=== PATIENT | male | born 1975 | race Caucasian/White ===

== ENCOUNTER 2020-02-12 01:30 | Emergency (ER) | payer BC ==
--- NOTE | 2020-02-12 02:08 | CT ---
INDICATION: Fall. Head injury TECHNIQUE: CT head without contrast. COMPARISON: 01/11/2013 FINDINGS: There is mild cortical atrophy for age. The ventricles are within normal limits. There is no mass effect or midline shift. There is no loss of fleming-white differentiation. There is no evidence of a gross acute intracranial hemorrhage. No acute calvarial fracture is seen. There is a posterior scalp hematoma. There is a small mucosal retention cyst or polyp in the posterior right ethmoid sinus. The mastoid air cells are clear. The visualized orbits are within normal limits. IMPRESSION: No evidence of gross acute intracranial hemorrhage, mass effect or loss of fleming-white differentiation. Mild atrophy for age. A posterior scalp hematoma. Dictated by Fred Goodson MD @ 02/12/2020 2:06:15 AM Please note that all CT scans at this facility use dose modulation, iterative reconstruction, and/or weight-based dosing when appropriate to reduce radiation dose to as low as reasonably achievable. Dictated by: Fred Goodson MD @ 02/12/2020 02:06:21 (Electronically Signed)
[2020-02-12] MEDS ORDERED: Lidocaine 1% with EPINEPHrine 1:100,000 10 ML MDV INJECT ONE (02:16)
[2020-02-12] MEDS ORDERED: Lidocaine 1% with EPINEPHrine 1:100,000 20 ML MDV ONE (02:20)
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
[2020-02-12 03:05] VITALS: BP 105/73; PULSE 104
== END 2020-02-12 03:00 | disposition home or self-care (01) ==
LOC: MW.ED 01:30
DX: S01.01XA Laceration without foreign body of scalp, initial encounter (principal); Y04.0XXA Assault by unarmed brawl or fight, initial encounter
CPT/HCPCS: 12004; 70450; 70450-26; 99283-25

== ENCOUNTER 2020-03-16 13:37 | Emergency (ER) | payer BC ==
[2020-03-16] MEDS ORDERED: Sodium Chloride 0.9% 1,000 ML IV ONE (13:40)
[2020-03-16] MEDS ORDERED: Sodium Chloride 0.9% 10 ML Syringe FLUSH PRN (13:40)
[2020-03-16] MEDS ORDERED: Sodium Chloride 0.9% 2.5 ML Syringe FLUSH PRN (13:40)
--- NOTE | 2020-03-16 13:42 | EDM.PDOC ---
ED HPI GENERAL MEDICAL PROBLEM - General Stated Complaint: DIZZY Time Seen by Provider: 03/16/20 13:39 Source of Information: Reports: Patient History Limitations: Reports: No Limitations - History of Present Illness INITIAL COMMENTS - FREE TEXT/NARRATIVE: 44-year-old male with h/o ETOH withdrawal presents feeling jittery, dizzy and weak today. He claims he feels dehydrated. He drank 4 glasses of wine yesterday but he normally drinks about 12 glasses per day. He has had a history of withdrawal seizures before. He denies fever, chills, nausea, vomiting , diarrhea, chest pain, shortness of breath, abdominal pain, headache. ROS: A 10-point review of systems, other than pertinent positives and negatives as stated per HPI, is otherwise negative PHYSICAL EXAM General: AOx4, GCS = 15, No distress HEENT: dry mucous membrane Neck: supple, no meningismus, no Kernig or Brudzinski Cardiac: S1S2 RRR Respiratory: CTAB, no crackles or rales, no wheezing Abdomen: Soft, nontender, no rebound or guarding, nondistended, no pulsatile mass. Back: nontender Musculoskeletal: NVI distally, no deformity Skin: clammy. Neuro: No focal deficits, CN 2 - 12 WNL. CiWAR score = 6 MEDICAL DECISION MAKING: I reviewed the patients past medical records, lab and radiographic findings. I discussed the case with family members. My differential diagnosis included: Dehydration, electrolyte abnormality, ETOH withdrawal. He was symptomatically improved after 1 mg IV Ativan, thiamine and folic acid, 1 L IV fluids, stable for discharge. Patient's CIWA score <8, does not require additional medication for withdrawal at this time. - Related Data Allergies Allergy/AdvReac Type Severity Reaction Status Date / Time No Known Allergies Allergy Verified 03/16/20 13:42 Home Meds: Home Meds . [No Known Home Meds] 02/15/16 [History] Past Medical History - Past Health History Medical/Surgical History: Denies Medical/Surgical History - Infectious Disease History Infectious Disease History: Reports: None Social & Family History - Family History Family Medical History: Noncontributory - Caffeine Use Caffeine Use: Reports: None ED ROS GENERAL - Review of Systems Review Of Systems: Comprehensive ROS is negative, except as noted in HPI. (see dictation) Neurological: Reports: Dizziness Psychiatric: Reports: Agitation, Anxiety ED EXAM, DIZZINESS - Physical Exam Exam: See Below (See dictation) EKG INTERPRETATION Rhythm: NSR EKG Interpretation Comments: 72 Bpm, NSR, normal QRS interval, no STEMI. EKG and rhythm strip interpreted by me at 1341 Course - Vital Signs Last Recorded V/S: Last Vital Signs Temp 97.4 F 03/16/20 13:43 Pulse 68 03/16/20 14:42 Resp 18 03/16/20 14:42 BP 148/82 H 03/16/20 14:42 Pulse Ox 97 03/16/20 14:42 - Orders/Labs/Meds Orders: Active Orders 24 hr Category Date Time Status Cardiac Monitoring [RC] . DIRECTED Care 03/16/20 13:40 Active EKG Documentation Completion [RC] STAT Care 03/16/20 13:40 Active Pulse Oximetry [RC] ASDIRECTED Care 03/16/20 13:40 Active Sodium Chloride 0.9% [Saline Flush] Med 03/16/20 13:40 Active 10 ml FLUSH ASDIRECTED PRN Sodium Chloride 0.9% [Saline Flush] Med 03/16/20 13:40 Active 2.5 ml FLUSH ASDIRECTED PRN Saline Lock Insert [OM.PC] Stat Oth 03/16/20 13:40 Ordered Medication Orders Sodium Chloride (Saline Flush) 10 ml FLUSH ASDIRECTED PRN PRN Reason: Keep Vein Open Last Admin: 03/16/20 13:53 Dose: 10 ml Sodium Chloride (Saline Flush) 2.5 ml FLUSH ASDIRECTED PRN PRN Reason: Keep Vein Open Last Admin: 03/16/20 13:53 Dose: 2.5 ml Labs: Laboratory Tests 03/16/20 03/16/20 03/16/20 Range/Units 13:49 13:49 14:23 WBC 4.38 (4.0-11.0) K/uL RBC 4.39 L (4.50-5.90) M/uL Hgb 12.5 L (13.0-17.0) g/dL Hct 39.4 (38.0-50.0) % MCV 89.7 (80.0-98.0) fL MCH 28.5 (27.0-32.0) pg MCHC 31.7 (31.0-37.0) g/dL RDW Std Deviation 56.7 (28.0-62.0) fl RDW Coeff of Liana 17 H (11.0-15.0) % Plt Count 175 (150-400) K/uL MPV 9.70 (7.40-12.00) fL Neut % (Auto) 68.3 (48.0-80.0) % Lymph % (Auto) 20.3 (16.0-40.0) % [place] % (Auto) 10.7 (0.0-15.0) % Eos % (Auto) 0.2 (0.0-7.0) % Baso % (Auto) 0.5 (0.0-1.5) % Neut # (Auto) 3.0 (1.4-5.7) K/uL Lymph # (Auto) 0.9 (0.6-2.4) K/uL [place] # (Auto) 0.5 (0.0-0.8) K/uL Eos # (Auto) 0.0 (0.0-0.7) K/uL Baso # (Auto) 0.0 (0.0-0.1) K/uL Nucleated RBC % 0.0 /100WBC Nucleated RBCs # 0 K/uL Sodium 135 L (136-148) mmol/L Potassium 3.7 (3.5-5.1) mmol/L Chloride 97 L (98-107) mmol/L Carbon Dioxide 24.0 (21.0-32.0) mmol/L BUN 8 (7.0-18.0) mg/dL Creatinine 0.9 (0.8-1.3) mg/dL Est Cr Clr Drug Dosing 116.16 mL/min Estimated GFR (MDRD) > 60.0 ml/min Glucose 111 H (74-106) mg/dL Calcium 8.8 (8.5-10.1) mg/dL Total Bilirubin 0.5 (0.2-1.0) mg/dL AST 105 H (15-37) IU/L ALT 94 H (14-63) IU/L Alkaline Phosphatase 57 (46-116) U/L Troponin I < 0.050 (0.000-0.056) ng/mL Total Protein 7.7 (6.4-8.2) g/dL Albumin 4.4 (3.4-5.0) g/dL Globulin 3.3 (2.6-4.0) g/dL Albumin/Globulin Ratio 1.3 (0.9-1.6) Urine Color Urine Appearance Urine pH (5.0-8.0) Ur Specific Donaldson (1.001-1.035) Urine Protein (NEGATIVE) mg/dL Urine Glucose (UA) (NEGATIVE) mg/dL Urine Ketones (NEGATIVE) mg/dL Urine Occult Blood (NEGATIVE) Urine Nitrite (NEGATIVE) Urine Bilirubin (NEGATIVE) Urine Urobilinogen (<2.0) EU/dL Ur Leukocyte Esterase (NEGATIVE) Urine Opiates Screen NEGATIVE (NEGATIVE) Ur Oxycodone Screen NEGATIVE (NEGATIVE) Urine Methadone Screen NEGATIVE (NEGATIVE) Ur Barbiturates Screen NEGATIVE (NEGATIVE) Ur Phencyclidine Scrn NEGATIVE (NEGATIVE) Ur Amphetamine Screen NEGATIVE (NEGATIVE) U Methamphetamines Scrn NEGATIVE (NEGATIVE) U Benzodiazepines Scrn NEGATIVE (NEGATIVE) U Cocaine Metab Screen NEGATIVE (NEGATIVE) U Marijuana (THC) Screen NEGATIVE (NEGATIVE) Ethyl Alcohol 32 mg/dL 03/16/20 Range/Units 14:23 WBC (4.0-11.0) K/uL RBC (4.50-5.90) M/uL Hgb (13.0-17.0) g/dL Hct (38.0-50.0) % MCV (80.0-98.0) fL MCH (27.0-32.0) pg MCHC (31.0-37.0) g/dL RDW Std Deviation (28.0-62.0) fl RDW Coeff of Liana (11.0-15.0) % Plt Count (150-400) K/uL MPV (7.40-12.00) fL Neut % (Auto) (48.0-80.0) % Lymph % (Auto) (16.0-40.0) % [place] % (Auto) (0.0-15.0) % Eos % (Auto) (0.0-7.0) % Baso % (Auto) (0.0-1.5) % Neut # (Auto) (1.4-5.7) K/uL Lymph # (Auto) (0.6-2.4) K/uL [place] # (Auto) (0.0-0.8) K/uL Eos # (Auto) (0.0-0.7) K/uL Baso # (Auto) (0.0-0.1) K/uL Nucleated RBC % /100WBC Nucleated RBCs # K/uL Sodium (136-148) mmol/L Potassium (3.5-5.1) mmol/L Chloride (98-107) mmol/L Carbon Dioxide (21.0-32.0) mmol/L BUN (7.0-18.0) mg/dL Creatinine (0.8-1.3) mg/dL Est Cr Clr Drug Dosing mL/min Estimated GFR (MDRD) ml/min Glucose (74-106) mg/dL Calcium (8.5-10.1) mg/dL Total Bilirubin (0.2-1.0) mg/dL AST (15-37) IU/L ALT (14-63) IU/L Alkaline Phosphatase (46-116) U/L Troponin I (0.000-0.056) ng/mL Total Protein (6.4-8.2) g/dL Albumin (3.4-5.0) g/dL Globulin (2.6-4.0) g/dL Albumin/Globulin Ratio (0.9-1.6) Urine Color YELLOW Urine Appearance CLEAR Urine pH 6.0 (5.0-8.0) Ur Specific Donaldson <= 1.005 (1.001-1.035) Urine Protein NEGATIVE (NEGATIVE) mg/dL Urine Glucose (UA) NEGATIVE (NEGATIVE) mg/dL Urine Ketones NEGATIVE (NEGATIVE) mg/dL Urine Occult Blood NEGATIVE (NEGATIVE) Urine Nitrite NEGATIVE (NEGATIVE) Urine Bilirubin NEGATIVE (NEGATIVE) Urine Urobilinogen 0.2 (<2.0) EU/dL Ur Leukocyte Esterase NEGATIVE (NEGATIVE) Urine Opiates Screen (NEGATIVE) Ur Oxycodone Screen (NEGATIVE) Urine Methadone Screen (NEGATIVE) Ur Barbiturates Screen (NEGATIVE) Ur Phencyclidine Scrn (NEGATIVE) Ur Amphetamine Screen (NEGATIVE) U Methamphetamines Scrn (NEGATIVE) U Benzodiazepines Scrn (NEGATIVE) U Cocaine Metab Screen (NEGATIVE) U Marijuana (THC) Screen (NEGATIVE) Ethyl Alcohol mg/dL Meds: Medications Generic Name Dose Route Start Last Admin Trade Name Freq PRN Reason Stop Dose Admin Sodium Chloride 10 ml 03/16/20 13:40 03/16/20 13:53 Saline Flush FLUSH 10 ml ASDIRECTED PRN Administration Keep Vein Open Sodium Chloride 2.5 ml 03/16/20 13:40 03/16/20 13:53 Saline Flush FLUSH 2.5 ml ASDIRECTED PRN Administration Keep Vein Open Discontinued Medications Generic Name Dose Route Start Last Admin Trade Name Freq PRN Reason Stop Dose Admin Sodium Chloride 1,000 mls @ 999 mls/hr 03/16/20 13:40 03/16/20 13:51 Normal Saline IV 03/16/20 14:40 999 mls/hr BOLUS ONE Administration - Re-Assessments/Exams Free Text/Narrative Re-Assessment/Exam: 03/16/20 15:11 after IVF, ativan 1mg iV, thiamine and folic acid, and a prolonged observation period in the ER, the patient improved clinically and is stable for discharge. I performed a repeat examination and the patient has not demonstrated any new abnormal findings. Patient exhibits normal vital signs and has exhibited a normal gait. I advised the patient to return to the ER for reevaluation if symptoms worsened, and to follow up with their PCP within 2-3 days. Departure - Departure Time of Disposition: 15:31 Disposition: Home, Self-Care 01 Condition: Good Clinical Impression: Alcohol withdrawal - Discharge Information Instructions: Alcohol Abuse and Nutrition, Alcohol Withdrawal Syndrome Referrals: Tyson Mendoza MD [Primary Care Provider] - Additional Instructions: The following information is given to patients seen in the emergency department who are being discharged to home. This information is to outline your options for follow-up care. We provide all patients seen in our emergency department with a follow-up referral. The need for follow-up, as well as the timing and circumstances, are variable depending upon the specifics of your emergency department visit. If you don't have a primary care physician on staff, we will provide you with a referral. We always advise you to contact your personal physician following an emergency department visit to inform them of the circumstance of the visit and for follow-up with them and/or the need for any referrals to a consulting specialist. The emergency department will also refer you to a specialist when appropriate. This referral assures that you have the opportunity for follow-up care with a specialist. All of these measure are taken in an effort to provide you with optimal care, which includes your follow-up. Under all circumstances we always encourage you to contact your private physician who remains a resource for coordinating your care. When calling for follow-up care, please make the office aware that this follow-up is from your recent emergency room visit. If for any reason you are refused follow-up, please contact the [facility] Emergency Department at and asked to speak to the emergency department charge nurse. Sepsis Event Note - Focused Exam Vital Signs: Vital Signs Temp Pulse Resp BP Pulse Ox 03/16/20 14:42 68 18 148/82 H 97 03/16/20 14:23 87 12 159/92 H 99 03/16/20 13:43 97.4 F 80 12 157/91 H 100 Date Exam was Performed: 03/16/20 Time Exam was Performed: 15:00 - My Orders Last 24 Hours: My Active Orders 03/16/20 13:40 Cardiac Monitoring [RC] . DIRECTED EKG Documentation Completion [RC] STAT Pulse Oximetry [RC] ASDIRECTED Sodium Chloride 0.9% [Saline Flush] 10 ml FLUSH ASDIRECTED PRN Sodium Chloride 0.9% [Saline Flush] 2.5 ml FLUSH ASDIRECTED PRN Saline Lock Insert [OM.PC] Stat - Assessment/Plan Last 24 Hours: My Active Orders 03/16/20 13:40 Cardiac Monitoring [RC] . DIRECTED EKG Documentation Completion [RC] STAT Pulse Oximetry [RC] ASDIRECTED Sodium Chloride 0.9% [Saline Flush] 10 ml FLUSH ASDIRECTED PRN Sodium Chloride 0.9% [Saline Flush] 2.5 ml FLUSH ASDIRECTED PRN Saline Lock Insert [OM.PC] Stat
[2020-03-16 14:32] LABS: BLOOD UREA NITROGEN,BUN 8 mg/dL (7.0-18.0); CHLORIDE,CL 97 mmol/L (98-107); GLUCOSE RANDOM 111 mg/dL (74-106); POTASSIUM,K 3.7 mmol/L (3.5-5.1); SODIUM,NA 135 mmol/L (136-148)
--- NOTE | 2020-03-16 14:35 | CR ---
INDICATION: Dizziness. COMPARISON: None. FINDINGS: PA and lateral views of the chest were obtained. The cardiac silhouette and pulmonary vasculature are within normal limits. The lungs are clear bilaterally. IMPRESSION: No evidence of acute pulmonary disease. Dictated by Tony Cisneros MD @ Mar 16 2020 2:33PM Signed by Dr. Tony Cisneros @ Mar 16 2020 2:34PM
[2020-03-16] MEDS ORDERED: Thiamine 100 MG Tab PO ONE (15:08)
[2020-03-16] MEDS ORDERED: Folic Acid 1 MG Tab PO ONE (15:08)
[2020-03-16] MEDS ORDERED: LORazepam 2 MG/ML SDV IVPUSH ONE (15:08)
[2020-03-16 15:16] VITALS: BP 146/92; PULSE 89
== END 2020-03-16 15:51 | disposition home or self-care (01) ==
LOC: MW.ED 13:37
DX: F10.239 Alcohol dependence with withdrawal, unspecified (principal); Y90.1 Blood alcohol level of 20-39 mg/100 ml
CPT/HCPCS: 36415; 71046; 80053; 80305; 80307; 81003; 84484; 85025; 93005; 96361; 96374; 99285; A9270; J2060; J7030

== ENCOUNTER 2020-10-04 18:23 | Emergency (ER) | payer BC ==
[2020-10-04] MEDS ORDERED: Sodium Chloride 0.9% 10 ML Syringe FLUSH PRN (18:56)
[2020-10-04] MEDS ORDERED: Sodium Chloride 0.9% 2.5 ML Syringe FLUSH PRN (18:56)
[2020-10-04] MEDS ORDERED: MVI, Adult with Vitamin K 10 ML, Thiamine 100 MG, Folic Acid 1 MG in Sodium Chloride 0.... IV ONE ×4 (18:57)
[2020-10-04 19:13] LABS: BLOOD UREA NITROGEN,BUN 18 mg/dL (7.0-18.0); CARBON DIOXIDE,CO2 25.2 mmol/L (21.0-32.0); CHLORIDE,CL 100 mmol/L (98-107); GLUCOSE RANDOM 126 mg/dL (74-106); LIPASE 374 U/L (73-393); POTASSIUM,K 3.7 mmol/L (3.5-5.1); SODIUM,NA 138 mmol/L (136-148)
--- NOTE | 2020-10-04 19:42 | EDM.PDOC ---
ED HPI GENERAL MEDICAL PROBLEM - General Chief Complaint: Drug or Alcohol Abuse Stated Complaint: SPOKE TO NURSE Time Seen by Provider: 10/04/20 18:40 Source of Information: Reports: Patient History Limitations: Reports: No Limitations - History of Present Illness INITIAL COMMENTS - FREE TEXT/NARRATIVE: HISTORY AND PHYSICAL: History of present illness: Patient is a 45-year-old male, with history of chronic alcohol abuse, who presents to the ED today for concern of possible alcohol withdraw as he has some nausea and had 2 episodes of vomiting earlier today but has not vomited in several hours according to patient and at this time does not have any symptoms. Patient states that he has a history of withdrawal seizures and has been slowly decreasing the amount of alcohol he has been drinking over the course of the last month. Patient states he began feeling nauseous and vomited earlier today and states that his last alcoholic beverage was 1 hour prior to coming to the ED and states he drank a "large glass of wine"and today has had multiple glasses of wine and 4-5 beers. Patient states at this time he has no symptoms. Patient denies fever, chills, chest pain, shortness of breath, or cough. Denies headache, neck stiff ness, change in vision, syncope, or near syncope. Denies abdominal pain, diarrhea, constipation, or dysuria. Has not noted any blood in urine or stool. Patient has been eating and drinking appropriately. Review of systems: As per history of present illness and below otherwise all systems reviewed and negative. Past medical history: As per history of present illness and as reviewed below otherwise noncontributory. Surgical history: As per history of present illness and as reviewed below otherwise noncontributory. Social history: See social history for further information Family history: As per history of present illness and as reviewed below otherwise noncontributory. Physical exam: General: Patient is alert, oriented, and in no acute distress. Patient sitting comfortably on exam table. Vitals stable and reviewed by me. HEENT: Atraumatic, normocephalic, pupils equal and reactive bilaterally, negative for conjunctival pallor or scleral icterus, mucous membranes moist, TMs normal bilaterally, throat clear, neck supple, nontender, trachea midline. No drooling or trismus noted. No meningeal signs. No hot potato voice noted. Lungs: Clear to auscultation, breath sounds equal bilaterally, chest nontender. Heart: S1S2, regular rate and rhythm without overt murmur Abdomen: Soft, nondistended, nontender. Negative for masses or hepatosplenomegaly. Negative for costovertebral tenderness. Pelvis: Stable nontender. Genitourinary: Deferred. Rectal: Deferred. Skin: Intact, warm, dry. No lesions or rashes noted. Extremities: Atraumatic, negative for cords or calf pain. Neurovascular unremarkable. Neuro: Awake, alert, oriented. Cranial nerves II through XII unremarkable. Cerebellum unremarkable. Motor and sensory unremarkable throughout. Exam nonfocal. GCS 15. CIWA-5 Notes: CIWA-5 with GCS 15. Vitals stable and reviewed by me. Patient is not vomiting on exam and appears well. CIWA score is <8 and does not require medications for withdraw. I did offer alcohol detox to patient but he states he does not desire to stop drinking and intends to drink alcohol following discharge from the ED and has no intention of wanting to stop according to patient. Patient does become aggressive requesting that he receive Ativan and be discharged from the ED. I thoroughly discussed with patient that he does not meet criteria at this time to receive Ativan. Patient requesting discharge from ED but states he will finish the banana bag then desires discharge. I did provide patient with outpatient addiction program follow up as well as discussed the importance for follow up with his PCP. Signs and symptoms that would prompt return to the ED thoroughly discussed with patient. Voices understanding and is agreeable to plan of care. Denies any further questions or concerns at this time. Diagnostics: EKG, CBC, CMP, UA, Trop, CXR Therapeutics: Banana Bag Prescription: None Impression: Alcohol abuse Plan: 1. Follow up with an addiction program as discussed and your primary care provider. 2. Return to the ED as needed and as discussed. Definitive disposition and diagnosis as appropriate pending reevaluation and review of above. - Related Data Allergies Allergy/AdvReac Type Severity Reaction Status Date / Time No Known Allergies Allergy Verified 10/04/20 18:32 Home Meds: Home Meds . [No Known Home Meds] 02/15/16 [History] Past Medical History - Past Health History Medical/Surgical History: Denies Medical/Surgical History Cardiovascular History: Reports: None Respiratory History: Reports: None Genitourinary History: Reports: None Musculoskeletal History: Reports: None Neurological History: Reports: None Psychiatric History: Reports: Anxiety Endocrine/Metabolic History: Reports: None Hematologic History: Reports: None Immunologic History: Reports: None Oncologic (Cancer) History: Reports: None Dermatologic History: Reports: None - Infectious Disease History Infectious Disease History: Reports: Chicken Pox - Past Surgical History Head Surgeries/Procedures: Reports: None HEENT Surgical History: Reports: Tonsillectomy GI Surgical History: Reports: Hernia, Inguinal, Hernia Repair/Other Social & Family History - Family History Family Medical History: Noncontributory - Tobacco Use Tobacco Use Status *Q: Current Every Day Tobacco User Years of Tobacco use: 25 Packs/Tins Daily: 1 - Caffeine Use Caffeine Use: Reports: None - Recreational Drug Use Recreational Drug Use: No ED ROS GENERAL - Review of Systems Review Of Systems: Comprehensive ROS is negative, except as noted in HPI. ED EXAM, GENERAL - Physical Exam Exam: See Below (see dictation) Course - Vital Signs Last Recorded V/S: Last Vital Signs Temp 95.4 F L 10/04/20 18:32 Pulse 88 10/04/20 21:22 Resp 18 10/04/20 21:22 BP 118/91 H 10/04/20 21:22 Pulse Ox 96 10/04/20 21:22 - Orders/Labs/Meds Orders: Active Orders 24 hr Category Date Time Status Saline Lock Insert [OM.PC] Stat Oth 10/04/20 18:56 Ordered Labs: Laboratory Tests 10/04/20 10/04/20 10/04/20 Range/Units 18:40 18:40 19:00 WBC 5.35 (4.0-11.0) K/uL RBC 5.19 (4.50-5.90) M/uL Hgb 16.5 (13.0-17.0) g/dL Hct 48.5 (38.0-50.0) % MCV 93.4 (80.0-98.0) fL MCH 31.8 (27.0-32.0) pg MCHC 34.0 (31.0-37.0) g/dL RDW Std Deviation 47.2 (28.0-62.0) fl RDW Coeff of Liana 14 (11.0-15.0) % Plt Count 338 (150-400) K/uL MPV 9.30 (7.40-12.00) fL Neut % (Auto) 53.4 (48.0-80.0) % Lymph % (Auto) 38.5 (16.0-40.0) % Ray % (Auto) 7.3 (0.0-15.0) % Eos % (Auto) 0.4 (0.0-7.0) % Baso % (Auto) 0.4 (0.0-1.5) % Neut # (Auto) 2.9 (1.4-5.7) K/uL Lymph # (Auto) 2.1 (0.6-2.4) K/uL Ray # (Auto) 0.4 (0.0-0.8) K/uL Eos # (Auto) 0.0 (0.0-0.7) K/uL Baso # (Auto) 0.0 (0.0-0.1) K/uL Nucleated RBC % 0.0 /100WBC Nucleated RBCs # 0 K/uL Sodium 138 (136-148) mmol/L Potassium 3.7 (3.5-5.1) mmol/L Chloride 100 (98-107) mmol/L Carbon Dioxide 25.2 (21.0-32.0) mmol/L BUN 18 (7.0-18.0) mg/dL Creatinine 1.1 (0.8-1.3) mg/dL Est Cr Clr Drug Dosing 91.27 mL/min Estimated GFR (MDRD) > 60.0 ml/min Glucose 126 H (74-106) mg/dL Calcium 8.4 L (8.5-10.1) mg/dL Total Bilirubin 0.5 (0.2-1.0) mg/dL AST 145 H (15-37) IU/L ALT 90 H (14-63) IU/L Alkaline Phosphatase 62 (46-116) U/L Troponin I < 0.050 (0.000-0.056) ng/mL Total Protein 7.9 (6.4-8.2) g/dL Albumin 4.2 (3.4-5.0) g/dL Globulin 3.7 (2.6-4.0) g/dL Albumin/Globulin Ratio 1.1 (0.9-1.6) Lipase 374 (73-393) U/L Urine Color YELLOW Urine Appearance CLEAR Urine pH 6.0 (5.0-8.0) Ur Specific [place] <= 1.005 (1.001-1.035) Urine Protein NEGATIVE (NEGATIVE) mg/dL Urine Glucose (UA) NEGATIVE (NEGATIVE) mg/dL Urine Ketones NEGATIVE (NEGATIVE) mg/dL Urine Occult Blood NEGATIVE (NEGATIVE) Urine Nitrite NEGATIVE (NEGATIVE) Urine Bilirubin NEGATIVE (NEGATIVE) Urine Urobilinogen 0.2 (<2.0) EU/dL Ur Leukocyte Esterase NEGATIVE (NEGATIVE) Meds: Medications Discontinued Medications Generic Name Dose Route Start Last Admin Trade Name Freq PRN Reason Stop Dose Admin Multivitamins/Minerals 10 ml/ 1,011.2 mls @ 999 mls/hr 10/04/20 18:57 10/04/20 19:57 Thiamine HCl 100 mg/ Folic IV 10/04/20 19:57 999 mls/hr Acid 1 mg/ Sodium Chloride ONETIME ONE Administration Sodium Chloride 2.5 ml 10/04/20 18:56 10/04/20 19:56 Saline Flush FLUSH 2.5 ml ASDIRECTED PRN Administration Keep Vein Open Sodium Chloride 10 ml 10/04/20 18:56 10/04/20 19:56 Saline Flush FLUSH 10 ml ASDIRECTED PRN Administration Keep Vein Open Departure - Departure Time of Disposition: 21:23 Disposition: Home, Self-Care 01 Clinical Impression: Alcohol abuse - Discharge Information Instructions: Alcohol Use Disorder, Binge-Drinking Information, Adult Referrals: PCP,None [Primary Care Provider] - Forms: ED Department Discharge Additional Instructions: The following information is given to patients seen in the emergency department who are being discharged to home. This information is to outline your options for follow-up care. We provide all patients seen in our emergency department with a follow-up referral. The need for follow-up, as well as the timing and circumstances, are variable depending upon the specifics of your emergency department visit. If you don't have a primary care physician on staff, we will provide you with a referral. We always advise you to contact your personal physician following an emergency department visit to inform them of the circumstance of the visit and for follow-up with them and/or the need for any referrals to a consulting specialist. The emergency department will also refer you to a specialist when appropriate. This referral assures that you have the opportunity for follow-up care with a specialist. All of these measure are taken in an effort to provide you with optimal care, which includes your follow-up. Under all circumstances we always encourage you to contact your private physician who remains a resource for coordinating your care. When calling for follow-up care, please make the office aware that this follow-up is from your recent emergency room visit. If for any reason you are refused follow-up, please contact the [facility] Emergency Department at and asked to speak to the emergency department charge nurse. [facility] [address] [place] [address] [facility] [address] [place] [address] [facility] [address], [place] [facility] [place] [address] [place], [place] [facility] [address] [place] [address] [facility] Hospital[facility] [address] [address] [facility] [address] [facility] [address] 1. Follow up with an addiction program as discussed and your primary care provider. 2. Return to the ED as needed and as discussed. Sepsis Event Note (ED) - Evaluation Sepsis Screening Result: No Definite Risk - My Orders Last 24 Hours: My Active Orders 10/04/20 18:56 Saline Lock Insert [OM.PC] Stat - Assessment/Plan Last 24 Hours: My Active Orders 10/04/20 18:56 Saline Lock Insert [OM.PC] Stat
[2020-10-04 21:23] VITALS: BP 118/91; PULSE 88
--- NOTE | 2020-10-04 22:41 | PCM.SN.2 ---
- Free Text/Narrative Note: EKG: As interpreted by ER physician: Bertram: Nonspecific ST-T wave abnormalities Normal axis No evidence of ST elevation WA Normal sinus rhythm heart rate of 75
== END 2020-10-04 21:30 | disposition home or self-care (01) ==
LOC: MW.ED 18:23
DX: F10.10 Alcohol abuse, uncomplicated (principal); F17.210 Nicotine dependence, cigarettes, uncomplicated
CPT/HCPCS: 36415; 80053; 81003; 83690; 84484; 85025; 93005; 96365; 99285; J3411; J7030; 93010; 99283

== ENCOUNTER 2020-10-05 11:47 | Inpatient (IN) | payer BC ==
[2020-10-05] MEDS ORDERED: Sodium Chloride 0.9% 1,000 ML IV ONE (12:32)
[2020-10-05] MEDS ORDERED: Ondansetron 4 MG/2 ML SDV IVPUSH ONE (12:32)
[2020-10-05 13:23] LABS: ACETAMINOPHEN <2.0 ug/mL
[2020-10-05 13:34] LABS: BLOOD UREA NITROGEN,BUN 16 mg/dL (7.0-18.0); CARBON DIOXIDE,CO2 22.3 mmol/L (21.0-32.0); CHLORIDE,CL 101 mmol/L (98-107); GLUCOSE RANDOM 87 mg/dL (74-106); SODIUM,NA 138 mmol/L (136-148)
--- NOTE | 2020-10-05 14:02 | EDM.PDOC ---
ED HPI GENERAL MEDICAL PROBLEM - General Chief Complaint: Drug or Alcohol Abuse Stated Complaint: SPOKE WITH NURSE Time Seen by Provider: 10/05/20 11:49 Source of Information: Reports: Patient History Limitations: Reports: No Limitations - History of Present Illness INITIAL COMMENTS - FREE TEXT/NARRATIVE: HISTORY AND PHYSICAL: History of present illness: Patient is a 45-year-old male, with a history of chronic alcohol abuse, who presents to the ED today with desire for detox from alcohol, nausea, vomiting with inability to eat or drink anything due to nausea. Patient states he has a history of withdrawal seizures and states that in the past once he is stops drinking, he has had seizures rather quickly and was nervous and wanting to quit drinking. Patient was seen in the ED last night, and I personally saw and evaluated patient last night. Patient states that he did not want to be admitted last night but does desire to be admitted today as he is continued to have vomiting throughout the night and his last drink of alcohol was around 8 or 9 PM after discharge from the emergency room. Patient states he has not had any alcohol this morning and is noticing his nausea is worsening and states in the past, he has had seizures not long after these symptoms arrived. Patient states he does desire to detox completely from alcohol. Denies any other symptoms or concerns. Patient denies fever, chills, chest pain, shortness of breath, or cough. Denies headache, neck stiff ness, change in vision, syncope, or near syncope. Denies abdominal pain, diarrhea, constipation, or dysuria. Has not noted any blood in urine or stool. Review of systems: As per history of present illness and below otherwise all systems reviewed and negative. Past medical history: As per history of present illness and as reviewed below otherwise noncontributory. Surgical history: As per history of present illness and as reviewed below otherwise noncontributory. Social history: See social history for further information Family history: As per history of present illness and as reviewed below otherwise noncontributory. Physical exam: General: Patient is alert, oriented, and in no acute distress. Patient sitting comfortably on exam table but does appear mildly anxious. HEENT: Atraumatic, normocephalic, pupils equal and reactive bilaterally, negative for conjunctival pallor or scleral icterus, mucous membranes moist, TMs normal bilaterally, throat clear, neck supple, nontender, trachea midline. No drooling or trismus noted. No meningeal signs. No hot potato voice noted. Lungs: Clear to auscultation, breath sounds equal bilaterally, chest nontender. Heart: S1S2, regular rate and rhythm without overt murmur Abdomen: Soft, nondistended, nontender. Negative for masses or hepatosplenomegaly. Negative for costovertebral tenderness. Pelvis: Stable nontender. Genitourinary: Deferred. Rectal: Deferred. Skin: Intact, warm, dry. No lesions or rashes noted. Extremities: Atraumatic, negative for cords or calf pain. Neurovascular unremarkable. Neuro: Awake, alert, oriented. Cranial nerves II through XII unremarkable. Cerebellum unremarkable. Motor and sensory unremarkable throughout. Exam nonfocal. Notes: CIWA 6, does not require medication management for withdrawal at this time. Dr. Thompson consulted on patient and will admit to inpatient. Voices understanding and is agreeable to plan of care. Denies any further questions or concerns at this time. Diagnostics: CBC, CMP, UA, EKG, Ethanol, Salicylate, UDS, Acetaminophen, TSH, COVID19 Therapeutics: NS, Zofran Impression: Desire for alcohol detox Nausea with vomiting Alcohol abuse Plan: Admission to inpatient to Dr. Thompson Definitive disposition and diagnosis as appropriate pending reevaluation and review of above. generalized Pain Score (Numeric/FACES): 3 - Related Data Allergies Allergy/AdvReac Type Severity Reaction Status Date / Time No Known Allergies Allergy Verified 10/05/20 15:46 Home Meds: Home Meds . [No Known Home Meds] 02/15/16 [History] Past Medical History - Past Health History Medical/Surgical History: Denies Medical/Surgical History Cardiovascular History: Reports: None Respiratory History: Reports: None Genitourinary History: Reports: None Musculoskeletal History: Reports: None Neurological History: Reports: None Psychiatric History: Reports: Anxiety Endocrine/Metabolic History: Reports: None Hematologic History: Reports: None Immunologic History: Reports: None Oncologic (Cancer) History: Reports: None Dermatologic History: Reports: None - Infectious Disease History Infectious Disease History: Reports: Chicken Pox - Past Surgical History Head Surgeries/Procedures: Reports: None HEENT Surgical History: Reports: Tonsillectomy GI Surgical History: Reports: Hernia, Inguinal, Hernia Repair/Other Social & Family History - Family History Family Medical History: Noncontributory - Tobacco Use Tobacco Use Status *Q: Current Every Day Tobacco User Years of Tobacco use: 25 Packs/Tins Daily: 0.5 - Caffeine Use Caffeine Use: Reports: None - Alcohol Use Days Per Week of Alcohol Use: 7 Number of Drinks Per Day: 15 Total Drinks Per Week: 105 - Recreational Drug Use Recreational Drug Use: No ED ROS GENERAL - Review of Systems Review Of Systems: Comprehensive ROS is negative, except as noted in HPI. ED EXAM, GENERAL - Physical Exam Exam: See Below (see dictation) Course - Vital Signs Last Recorded V/S: Last Vital Signs Temp 98.2 F 10/05/20 12:10 Pulse 77 10/05/20 14:57 Resp 16 10/05/20 12:10 BP 118/65 10/05/20 14:57 Pulse Ox 97 10/05/20 14:57 - Orders/Labs/Meds Orders: Active Orders 24 hr Category Date Time Status EKG Documentation Completion [RC] STAT Care 10/05/20 12:32 Active DRUG SCREEN, URINE [URCHEM] Stat Lab 10/05/20 12:32 Ordered UA W/MICROSCOPIC [URIN] Stat Lab 10/05/20 12:32 Ordered Medication Orders Acetaminophen (Tylenol) 325 mg PO Q4H PRN PRN Reason: Pain (Mild 1-3)/fever Folic Acid (Folic Acid) 1 mg PO DAILY ALEJANDRO Lorazepam (Ativan) 0 mg IVPUSH Q4H PRN; Protocol PRN Reason: CIWAA Ondansetron HCl (Zofran) 4 mg IVPUSH Q4H PRN PRN Reason: Nausea Thiamine HCl (Vitamin B-1) 100 mg PO BEDTIME ALEJANDRO Meds: Medications Generic Name Dose Route Start Last Admin Trade Name Freq PRN Reason Stop Dose Admin Acetaminophen 325 mg 10/05/20 16:23 Tylenol PO Q4H PRN Pain (Mild 1-3)/fever Folic Acid 1 mg 10/05/20 16:45 Folic Acid PO DAILY ALEJANDRO Lorazepam 0 mg 10/05/20 16:22 Ativan IVPUSH Q4H PRN CIWAA Protocol Ondansetron HCl 4 mg 10/05/20 16:22 Zofran IVPUSH Q4H PRN Nausea Thiamine HCl 100 mg 10/06/20 21:00 Vitamin B-1 PO BEDTIME ALEJANDRO Discontinued Medications Generic Name Dose Route Start Last Admin Trade Name Zach PRN Reason Stop Dose Admin Sodium Chloride 1,000 mls @ 999 mls/hr 10/05/20 12:32 10/05/20 12:51 Normal Saline IV 10/05/20 13:32 999 mls/hr STAT ONE Administration Influenza Virus Vaccine 1 each 10/05/20 15:43 Pharmacy To Dose - Influenza Vaccine IM 10/05/20 15:44 ONETIME ONE Influenza Virus Vaccine 60 mcg 10/05/20 15:45 Fluzone Quad Syringe IM 10/05/20 15:46 .ONCE ONE Ondansetron HCl 4 mg 10/05/20 12:32 10/05/20 12:52 Zofran IVPUSH 10/05/20 12:33 4 mg ONETIME ONE Administration Thiamine HCl 100 mg 10/05/20 21:00 Vitamin B-1 PO BEDTIME ALEJANDRO Thiamine HCl 100 mg 10/05/20 16:32 Vitamin B-1 PO 10/05/20 16:33 ONETIME ONE Departure - Departure Time of Disposition: 14:01 Disposition: Admitted As Inpatient 66 Clinical Impression: Desire for detoxification, Alcohol abuse Nausea and vomiting Qualifiers: Vomiting type: unspecified Vomiting Intractability: unspecified Qualified Code(s): R11.2 - Nausea with vomiting, unspecified - Discharge Information Sepsis Event Note (ED) - Evaluation Sepsis Screening Result: No Definite Risk - Focused Exam Vital Signs: Vital Signs Temp Pulse Resp BP Pulse Ox 10/05/20 12:10 98.2 F 87 16 119/86 97 - My Orders Last 24 Hours: My Active Orders 10/05/20 12:32 EKG Documentation Completion [RC] STAT DRUG SCREEN, URINE [URCHEM] Stat UA W/MICROSCOPIC [URIN] Stat - Assessment/Plan Last 24 Hours: My Active Orders 10/05/20 12:32 EKG Documentation Completion [RC] STAT DRUG SCREEN, URINE [URCHEM] Stat UA W/MICROSCOPIC [URIN] Stat
--- NOTE | 2020-10-05 14:19 | PCM.PRNOTE ---
- Free Text/Narrative Note: Time:1252 Rate:71 Rhythm: sinus Intervals: normal ST-T wave: no acute changes Overall: normal sinus rhythm
[2020-10-05] MEDS ORDERED: FLU VACC QS2020-21(6MOS UP)/PF 60 MCG/0.5 ML SYRINGE IM ONE (15:45)
[2020-10-05] MEDS ORDERED: Ondansetron 4 MG/2 ML SDV IVPUSH PRN (16:22)
[2020-10-05] MEDS ORDERED: Acetaminophen 325 MG Tab PO PRN (16:23)
--- NOTE | 2020-10-05 16:31 | PCM.HP.2 ---
H&P History of Present Illness - General Date of Service: 10/05/20 Admit Problem/Dx: Admission Diagnosis/Problem Admission Diagnosis/Problem Alcohol dependence - History of Present Illness Initial Comments - Free Text/Narative: 45 yo male with pmh of alcoholism and withdrawal seizures who presented to the ED requesting ETOH detox. Patient reports drinking 15-20 beers or glasses of wine a day. He has been trying to cut back but reports feeling ill with shakes and nausea. His room mate was concerned and told him to go to the ED. He denies any fevers, chills, shortness of breath, or diarrhea. generalized Pain Score (Numeric/FACES): 3 - Related Data Allergies/Adverse Reactions: Allergies Allergy/AdvReac Type Severity Reaction Status Date / Time No Known Allergies Allergy Verified 10/05/20 15:46 Home Medications: Home Meds . [No Known Home Meds] 02/15/16 [History] Past Medical History - Past Health History Medical/Surgical History: Denies Medical/Surgical History Cardiovascular History: Reports: None Respiratory History: Reports: None Genitourinary History: Reports: None Musculoskeletal History: Reports: None Neurological History: Reports: None Psychiatric History: Reports: Anxiety Endocrine/Metabolic History: Reports: None Hematologic History: Reports: None Immunologic History: Reports: None Oncologic (Cancer) History: Reports: None Dermatologic History: Reports: None - Infectious Disease History Infectious Disease History: Reports: Chicken Pox - Past Surgical History Head Surgeries/Procedures: Reports: None HEENT Surgical History: Reports: Tonsillectomy GI Surgical History: Reports: Hernia, Inguinal, Hernia Repair/Other Social & Family History - Family History Family Medical History: Noncontributory - Tobacco Use Tobacco Use Status *Q: Current Every Day Tobacco User Years of Tobacco use: 25 Packs/Tins Daily: 0.5 - Caffeine Use Caffeine Use: Reports: None - Alcohol Use Days Per Week of Alcohol Use: 7 Number of Drinks Per Day: 15 Total Drinks Per Week: 105 Date of Last Drink: 10/04/20 Time of Last Drink: 21:00 - Recreational Drug Use Recreational Drug Use: No H&P Review of Systems - Review of Systems: Review Of Systems: Comprehensive ROS is negative, except as noted in HPI. Exam - Exam Exam: See Below - Vital Signs Vital Signs: Last Vital Signs Temp 36.8 C 10/05/20 12:10 Pulse 77 10/05/20 14:57 Resp 16 10/05/20 12:10 BP 118/65 10/05/20 14:57 Pulse Ox 97 10/05/20 14:57 Weight: 75.024 kg - Exam General: Alert, Oriented HEENT: Mucosa Moist & [place] Neck: Supple Lungs: Clear to Auscultation, Normal Respiratory Effort Cardiovascular: Regular Rate, Regular Rhythm GI/Abdominal Exam: Normal Bowel Sounds, Soft, Non-Tender, No Distention Extremities: Non-Tender, No Pedal Edema Skin: Warm, Dry, Intact Neurological: Cranial Nerves Intact, Reflexes Equal Bilateral, Strength Equal Bilateral, Normal Gait, Normal Speech, Normal Tone, Sensation Intact. No: Focal Deficit - Patient Data Lab Results Last 24 hrs: Laboratory Results - last 24 hr 10/05/20 10/05/20 10/05/20 Range/Units 12:53 12:53 13:06 WBC 3.89 L (4.0-11.0) K/uL RBC 4.78 (4.50-5.90) M/uL Hgb 15.2 (13.0-17.0) g/dL Hct 45.1 (38.0-50.0) % MCV 94.4 (80.0-98.0) fL MCH 31.8 (27.0-32.0) pg MCHC 33.7 (31.0-37.0) g/dL RDW Std Deviation 46.9 (28.0-62.0) fl RDW Coeff of Liana 14 (11.0-15.0) % Plt Count 292 (150-400) K/uL MPV 9.30 (7.40-12.00) fL Neut % (Auto) 56.3 (48.0-80.0) % Lymph % (Auto) 36.8 (16.0-40.0) % [place] % (Auto) 5.4 (0.0-15.0) % Eos % (Auto) 0.5 (0.0-7.0) % Baso % (Auto) 1.0 (0.0-1.5) % Neut # (Auto) 2.2 (1.4-5.7) K/uL Lymph # (Auto) 1.4 (0.6-2.4) K/uL [place] # (Auto) 0.2 (0.0-0.8) K/uL Eos # (Auto) 0.0 (0.0-0.7) K/uL Baso # (Auto) 0.0 (0.0-0.1) K/uL Nucleated RBC % 0.0 /100WBC Nucleated RBCs # 0 K/uL Sodium 138 (136-148) mmol/L Potassium 4.0 (3.5-5.1) mmol/L Chloride 101 (98-107) mmol/L Carbon Dioxide 22.3 (21.0-32.0) mmol/L BUN 16 (7.0-18.0) mg/dL Creatinine 1.0 (0.8-1.3) mg/dL Est Cr Clr Drug Dosing 99.19 mL/min Estimated GFR (MDRD) > 60.0 ml/min Glucose 87 (74-106) mg/dL Calcium 8.4 L (8.5-10.1) mg/dL Magnesium 1.9 (1.8-2.4) mg/dL Total Bilirubin 0.6 (0.2-1.0) mg/dL AST 133 H (15-37) IU/L ALT 87 H (14-63) IU/L Alkaline Phosphatase 58 (46-116) U/L Total Protein 7.4 (6.4-8.2) g/dL Albumin 3.8 (3.4-5.0) g/dL Globulin 3.6 (2.6-4.0) g/dL Albumin/Globulin Ratio 1.1 (0.9-1.6) TSH 3rd Generation 1.10 (0.36-3.74) uIU/mL Salicylates 3.1 (0-20) mg/dL Acetaminophen <2.0 ug/mL Ethyl Alcohol 164 mg/dL SARS-CoV-2 RNA (JUNITO) NEGATIVE (NEGATIVE) Result Diagrams: 10/05/20 12:53 10/05/20 12:53 Sepsis Event Note - Evaluation Sepsis Screening Result: No Definite Risk - Focused Exam Vital Signs: Vital Signs Temp Pulse Resp BP Pulse Ox 10/05/20 14:57 77 118/65 97 10/05/20 14:27 83 108/72 100 10/05/20 13:27 62 118/69 98 10/05/20 12:10 36.8 C 87 16 119/86 97 Problem List Initiated/Reviewed/Updated: Yes Orders Last 24hrs: Active Orders 24 hr Category Date Time Status Admission Status [Patient Status] [ADT] Stat ADT 10/05/20 12:33 Active Antiembolic Devices [RC] PER UNIT ROUTINE Care 10/05/20 16:24 Ordered EKG Documentation Completion [RC] STAT Care 10/05/20 12:32 Active Influenza Vaccine Charge [RC] .DISCHARGE Care 10/05/20 15:43 Active Oxygen Therapy [RC] PRN Care 10/05/20 16:23 Ordered Up ad Sheryl [RC] ASDIRECTED Care 10/05/20 16:23 Ordered VTE/DVT Education [RC] PER UNIT ROUTINE Care 10/05/20 16:23 Ordered Vital Signs [RC] Q4H Care 10/05/20 16:23 Ordered Regular Diet [DIET] Diet 10/05/20 Breakfast Ordered CBC WITH AUTO DIFF [HEME] AM Lab 10/06/20 05:11 Ordered COMPREHENSIVE METABOLIC PN,CMP [CHEM] AM Lab 10/06/20 05:11 Ordered DRUG SCREEN, URINE [URCHEM] Stat Lab 10/05/20 12:32 Ordered MAGNESIUM [CHEM] AM Lab 10/06/20 05:11 Ordered PHOSPHORUS [CHEM] AM Lab 10/06/20 05:11 Ordered UA W/MICROSCOPIC [URIN] Stat Lab 10/05/20 12:32 Ordered Acetaminophen [TylenoL] Med 10/05/20 16:23 Ordered 325 mg PO Q4H PRN LORazepam [Ativan] Med 10/05/20 16:22 Ordered See Protocol IVPUSH Q4H PRN Ondansetron [Zofran] Med 10/05/20 16:22 Ordered 4 mg IVPUSH Q4H PRN Sequential Compression Device [OM.PC] Per Unit Routine Oth 10/05/20 16:23 Ordered Resuscitation Status Routine Resus Stat 10/05/20 16:23 Ordered Medication Orders Acetaminophen (Tylenol) 325 mg PO Q4H PRN PRN Reason: Pain (Mild 1-3)/fever Lorazepam (Ativan) 0 mg IVPUSH Q4H PRN; Protocol PRN Reason: CIWAA Ondansetron HCl (Zofran) 4 mg IVPUSH Q4H PRN PRN Reason: Nausea Assessment/Plan Comment:: 45 yo male admitted for ETOH detox. We will place on CIWAA protocol with ativan prn, thiamin and folic acid.
[2020-10-05] MEDS ORDERED: Thiamine 100 MG Tab PO ONE (16:32)
[2020-10-05] MEDS: Folic Acid 1 MG Tab PO SCH (17:00)
[2020-10-05] MEDS: LORazepam 2 MG/ML SDV IVPUSH PRN (20:05)
[2020-10-05] MEDS ORDERED: Thiamine 100 MG Tab PO SCH (21:00)
[2020-10-06 06:59] LABS: BLOOD UREA NITROGEN,BUN 13 mg/dL (7.0-18.0); CHLORIDE,CL 100 mmol/L (98-107); GLUCOSE RANDOM 87 mg/dL (74-106); POTASSIUM,K 3.7 mmol/L (3.5-5.1); SODIUM,NA 135 mmol/L (136-148)
[2020-10-06] MEDS: Folic Acid 1 MG Tab PO SCH (09:35)
--- NOTE | 2020-10-06 15:18 | PCM.PN ---
- General Info Date of Service: 10/06/20 Admission Dx/Problem (Free Text): Admission Diagnosis/Problem Admission Diagnosis/Problem Alcohol dependence Subjective Update: eating breakfast, good appetite, continues to have some fine tremors, with diaphoresis Functional Status: Reports: Tolerating Diet, Ambulating, Urinating - Review of Systems General: Reports: Weakness, Appetite. Denies: Fever, Fatigue, Malaise, Chills Pulmonary: Denies: Shortness of Breath, Pleuritic Chest Pain Cardiovascular: Denies: Chest Pain, Palpitations, Dyspnea on Exertion, Orthopnea Gastrointestinal: Denies: Abdominal Pain, Constipation, Decreased Appetite Genitourinary: Denies: Dysuria, Frequency, Burning, Urgency Musculoskeletal: Denies: Hand Pain Neurological: Denies: Confusion, Dizziness, Headache, Numbness, Paresthesia - Patient Data Vitals - Most Recent: Last Vital Signs Temp 36.7 C 10/06/20 12:00 Pulse 77 10/06/20 12:00 Resp 14 10/06/20 12:00 BP 140/85 10/06/20 12:00 Pulse Ox 98 10/06/20 12:00 Weight - Most Recent: 75.024 kg I&O - Last 24 Hours: Intake & Output 10/06/20 10/06/20 10/06/20 06:59 14:59 22:59 Intake Total 800 Output Total 500 Balance 300 Lab Results Last 24 Hours: Laboratory Results - last 24 hr 10/05/20 10/05/20 10/06/20 Range/Units 16:42 16:42 05:35 WBC 3.13 L (4.0-11.0) K/uL RBC 4.25 L (4.50-5.90) M/uL Hgb 13.1 (13.0-17.0) g/dL Hct 40.1 (38.0-50.0) % MCV 94.4 (80.0-98.0) fL MCH 30.8 (27.0-32.0) pg MCHC 32.7 (31.0-37.0) g/dL RDW Std Deviation 46.3 (28.0-62.0) fl RDW Coeff of Liana 13 (11.0-15.0) % Plt Count 280 (150-400) K/uL MPV 9.70 (7.40-12.00) fL Neut % (Auto) 38.7 L (48.0-80.0) % Lymph % (Auto) 42.8 H (16.0-40.0) % [place] % (Auto) 16.0 H (0.0-15.0) % Eos % (Auto) 1.9 (0.0-7.0) % Baso % (Auto) 0.6 (0.0-1.5) % Neut # (Auto) 1.2 L (1.4-5.7) K/uL Lymph # (Auto) 1.3 (0.6-2.4) K/uL [place] # (Auto) 0.5 (0.0-0.8) K/uL Eos # (Auto) 0.1 (0.0-0.7) K/uL Baso # (Auto) 0.0 (0.0-0.1) K/uL Nucleated RBC % 0.0 /100WBC Nucleated RBCs # 0 K/uL Sodium (136-148) mmol/L Potassium (3.5-5.1) mmol/L Chloride (98-107) mmol/L Carbon Dioxide (21.0-32.0) mmol/L BUN (7.0-18.0) mg/dL Creatinine (0.8-1.3) mg/dL Est Cr Clr Drug Dosing mL/min Estimated GFR (MDRD) ml/min Glucose (74-106) mg/dL Calcium (8.5-10.1) mg/dL Phosphorus (2.6-4.7) mg/dL Magnesium (1.8-2.4) mg/dL Total Bilirubin (0.2-1.0) mg/dL AST (15-37) IU/L ALT (14-63) IU/L Alkaline Phosphatase (46-116) U/L Total Protein (6.4-8.2) g/dL Albumin (3.4-5.0) g/dL Globulin (2.6-4.0) g/dL Albumin/Globulin Ratio (0.9-1.6) Urine Color YELLOW Urine Appearance CLEAR Urine pH 6.0 (5.0-8.0) Ur Specific [place] >= 1.030 (1.001-1.035) Urine Protein NEGATIVE (NEGATIVE) mg/dL Urine Glucose (UA) NEGATIVE (NEGATIVE) mg/dL Urine Ketones 15 H (NEGATIVE) mg/dL Urine Occult Blood NEGATIVE (NEGATIVE) Urine Nitrite NEGATIVE (NEGATIVE) Urine Bilirubin NEGATIVE (NEGATIVE) Urine Urobilinogen 0.2 (<2.0) EU/dL Ur Leukocyte Esterase NEGATIVE (NEGATIVE) Urine RBC 0-2 (0-2/HPF) Urine WBC 0-1 (0-5/HPF) Ur Epithelial Cells RARE (NONE-FEW) Urine Bacteria RARE (NEGATIVE) Urine Opiates Screen NEGATIVE (NEGATIVE) Ur Oxycodone Screen NEGATIVE (NEGATIVE) Urine Methadone Screen NEGATIVE (NEGATIVE) Ur Barbiturates Screen NEGATIVE (NEGATIVE) Ur Phencyclidine Scrn NEGATIVE (NEGATIVE) Ur Amphetamine Screen NEGATIVE (NEGATIVE) U Methamphetamines Scrn NEGATIVE (NEGATIVE) U Benzodiazepines Scrn NEGATIVE (NEGATIVE) U Cocaine Metab Screen NEGATIVE (NEGATIVE) U Marijuana (THC) Screen NEGATIVE (NEGATIVE) 10/06/20 Range/Units 05:35 WBC (4.0-11.0) K/uL RBC (4.50-5.90) M/uL Hgb (13.0-17.0) g/dL Hct (38.0-50.0) % MCV (80.0-98.0) fL MCH (27.0-32.0) pg MCHC (31.0-37.0) g/dL RDW Std Deviation (28.0-62.0) fl RDW Coeff of Liana (11.0-15.0) % Plt Count (150-400) K/uL MPV (7.40-12.00) fL Neut % (Auto) (48.0-80.0) % Lymph % (Auto) (16.0-40.0) % [place] % (Auto) (0.0-15.0) % Eos % (Auto) (0.0-7.0) % Baso % (Auto) (0.0-1.5) % Neut # (Auto) (1.4-5.7) K/uL Lymph # (Auto) (0.6-2.4) K/uL [place] # (Auto) (0.0-0.8) K/uL Eos # (Auto) (0.0-0.7) K/uL Baso # (Auto) (0.0-0.1) K/uL Nucleated RBC % /100WBC Nucleated RBCs # K/uL Sodium 135 L (136-148) mmol/L Potassium 3.7 (3.5-5.1) mmol/L Chloride 100 (98-107) mmol/L Carbon Dioxide 26.0 (21.0-32.0) mmol/L BUN 13 (7.0-18.0) mg/dL Creatinine 1.0 (0.8-1.3) mg/dL Est Cr Clr Drug Dosing 100.03 mL/min Estimated GFR (MDRD) > 60.0 ml/min Glucose 87 (74-106) mg/dL Calcium 8.2 L (8.5-10.1) mg/dL Phosphorus 3.2 (2.6-4.7) mg/dL Magnesium 1.8 (1.8-2.4) mg/dL Total Bilirubin 1.7 H (0.2-1.0) mg/dL AST 102 H (15-37) IU/L ALT 72 H (14-63) IU/L Alkaline Phosphatase 51 (46-116) U/L Total Protein 6.3 L (6.4-8.2) g/dL Albumin 3.2 L (3.4-5.0) g/dL Globulin 3.1 (2.6-4.0) g/dL Albumin/Globulin Ratio 1.0 (0.9-1.6) Urine Color Urine Appearance Urine pH (5.0-8.0) Ur Specific [place] (1.001-1.035) Urine Protein (NEGATIVE) mg/dL Urine Glucose (UA) (NEGATIVE) mg/dL Urine Ketones (NEGATIVE) mg/dL Urine Occult Blood (NEGATIVE) Urine Nitrite (NEGATIVE) Urine Bilirubin (NEGATIVE) Urine Urobilinogen (<2.0) EU/dL Ur Leukocyte Esterase (NEGATIVE) Urine RBC (0-2/HPF) Urine WBC (0-5/HPF) Ur Epithelial Cells (NONE-FEW) Urine Bacteria (NEGATIVE) Urine Opiates Screen (NEGATIVE) Ur Oxycodone Screen (NEGATIVE) Urine Methadone Screen (NEGATIVE) Ur Barbiturates Screen (NEGATIVE) Ur Phencyclidine Scrn (NEGATIVE) Ur Amphetamine Screen (NEGATIVE) U Methamphetamines Scrn (NEGATIVE) U Benzodiazepines Scrn (NEGATIVE) U Cocaine Metab Screen (NEGATIVE) U Marijuana (THC) Screen (NEGATIVE) Med Orders - Current: Current Medications Acetaminophen (Tylenol) 325 mg PO Q4H PRN PRN Reason: Pain (Mild 1-3)/fever Folic Acid (Folic Acid) 1 mg PO DAILY [facility] Last Admin: 10/06/20 09:35 Dose: 1 mg Documented by: Lorazepam (Ativan) 0 mg IVPUSH Q4H PRN; Protocol PRN Reason: CIWAA Last Admin: 10/05/20 20:05 Dose: 2 mg Documented by: Ondansetron HCl (Zofran) 4 mg IVPUSH Q4H PRN PRN Reason: Nausea Thiamine HCl (Vitamin B-1) 100 mg PO BEDTIME [facility] Discontinued Medications Sodium Chloride (Normal Saline) 1,000 mls @ 999 mls/hr IV STAT ONE Stop: 10/05/20 13:32 Last Admin: 10/05/20 12:51 Dose: 999 mls/hr Documented by: Influenza Virus Vaccine (Pharmacy To Dose - Influenza Vaccine) 1 each IM ONETIME ONE Stop: 10/05/20 15:44 Influenza Virus Vaccine (Fluzone Quad Syringe) 60 mcg IM .ONCE ONE Stop: 10/05/20 15:46 Ondansetron HCl (Zofran) 4 mg IVPUSH ONETIME ONE Stop: 10/05/20 12:33 Last Admin: 10/05/20 12:52 Dose: 4 mg Documented by: Thiamine HCl (Vitamin B-1) 100 mg PO BEDTIME [facility] Thiamine HCl (Vitamin B-1) 100 mg PO ONETIME ONE Stop: 10/05/20 16:33 Last Admin: 10/05/20 17:01 Dose: 100 mg Documented by: - Exam General: Alert, Oriented Lungs: Clear to Auscultation, Normal Respiratory Effort Cardiovascular: Regular Rate, Regular Rhythm GI/Abdominal Exam: Normal Bowel Sounds, Soft, Non-Tender Back Exam: Normal Inspection, Full Range of Motion Extremities: Normal Inspection, Normal Range of Motion Neurological: No New Focal Deficit, Normal Gait, Sensation Intact, Cranial Nerves Intact Psy/Mental Status: Alert, Withdrawal Symptoms. No: Suicidal Ideation, Homicidal Ideation, Hallucinations Sepsis Event Note - Evaluation Sepsis Screening Result: No Definite Risk - Focused Exam Vital Signs: Vital Signs Temp Pulse Resp BP Pulse Ox 10/06/20 12:00 36.7 C 77 14 140/85 98 10/06/20 08:00 36.8 C 82 18 135/68 98 - Problem List & Annotations (1) Alcohol abuse SNOMED Code(s): 54508362 Code(s): F10.10 - ALCOHOL ABUSE, UNCOMPLICATED Status: Acute Current Visit: Yes (2) Desire for detoxification SNOMED Code(s): 624600036 Code(s): SYR5616 - Status: Acute Current Visit: Yes (3) Nausea and vomiting SNOMED Code(s): 47106511 Code(s): R11.2 - NAUSEA WITH VOMITING, UNSPECIFIED Status: Acute Current Visit: Yes Qualifiers: Vomiting type: unspecified Vomiting Intractability: unspecified Qualified Code(s): R11.2 - Nausea with vomiting, unspecified - Problem List Review Problem List Initiated/Reviewed/Updated: Yes - Plan Plan:: 45 yo male admitted for ETOH detox. Lat drink Wednesday cont CIWAA protocol with ativan prn, thiamin and folic acid.
[2020-10-06] MEDS: LORazepam 2 MG/ML SDV IVPUSH PRN (17:25)
[2020-10-06] MEDS ORDERED: Thiamine 100 MG Tab PO SCH (21:00)
[2020-10-07 07:58] VITALS: BP 127/88; PULSE 68
[2020-10-07] MEDS ORDERED: Magnesium Sulfate/Water 2 GM/50 ML Premix Bag IV ONE (08:00)
[2020-10-07 08:31] LABS: BLOOD UREA NITROGEN,BUN 11 mg/dL (7.0-18.0); CARBON DIOXIDE,CO2 28.5 mmol/L (21.0-32.0); CHLORIDE,CL 100 mmol/L (98-107); GLUCOSE RANDOM 95 mg/dL (74-106); SODIUM,NA 133 mmol/L (136-148)
--- NOTE | 2020-10-07 08:48 | PCM.PN ---
- General Info Date of Service: 10/07/20 Subjective Update: No complaints at bedside this AM. Denies any fevers, sweats, shakes, SOB, chest pain, nausea, vomiting or diarrhea. - Patient Data Vitals - Most Recent: Last Vital Signs Temp 36.1 C 10/07/20 07:10 Pulse 68 10/07/20 07:10 Resp 16 10/07/20 07:10 BP 127/88 10/07/20 07:10 Pulse Ox 100 10/07/20 07:10 Weight - Most Recent: 75.024 kg I&O - Last 24 Hours: Intake & Output 10/06/20 10/07/20 10/07/20 22:59 06:59 14:59 Intake Total 980 700 Output Total 860 Balance 120 700 Lab Results Last 24 Hours: Laboratory Results - last 24 hr 10/07/20 10/07/20 Range/Units 08:00 08:00 WBC 3.39 L (4.0-11.0) K/uL RBC 4.58 (4.50-5.90) M/uL Hgb 14.4 (13.0-17.0) g/dL Hct 43.8 (38.0-50.0) % MCV 95.6 (80.0-98.0) fL MCH 31.4 (27.0-32.0) pg MCHC 32.9 (31.0-37.0) g/dL RDW Std Deviation 46.0 (28.0-62.0) fl RDW Coeff of Liana 13 (11.0-15.0) % Plt Count 234 (150-400) K/uL MPV 9.70 (7.40-12.00) fL Neut % (Auto) 49.9 (48.0-80.0) % Lymph % (Auto) 32.2 (16.0-40.0) % [place] % (Auto) 14.7 (0.0-15.0) % Eos % (Auto) 2.9 (0.0-7.0) % Baso % (Auto) 0.3 (0.0-1.5) % Neut # (Auto) 1.7 (1.4-5.7) K/uL Lymph # (Auto) 1.1 (0.6-2.4) K/uL [place] # (Auto) 0.5 (0.0-0.8) K/uL Eos # (Auto) 0.1 (0.0-0.7) K/uL Baso # (Auto) 0.0 (0.0-0.1) K/uL Nucleated RBC % 0.0 /100WBC Nucleated RBCs # 0 K/uL Sodium 133 L (136-148) mmol/L Potassium 4.0 (3.5-5.1) mmol/L Chloride 100 (98-107) mmol/L Carbon Dioxide 28.5 (21.0-32.0) mmol/L BUN 11 (7.0-18.0) mg/dL Creatinine 0.9 (0.8-1.3) mg/dL Est Cr Clr Drug Dosing 111.15 mL/min Estimated GFR (MDRD) > 60.0 ml/min Glucose 95 (74-106) mg/dL Calcium 8.7 (8.5-10.1) mg/dL Total Bilirubin 1.1 H (0.2-1.0) mg/dL AST 89 H (15-37) IU/L ALT 78 H (14-63) IU/L Alkaline Phosphatase 55 (46-116) U/L Total Protein 7.4 (6.4-8.2) g/dL Albumin 3.6 (3.4-5.0) g/dL Globulin 3.8 (2.6-4.0) g/dL Albumin/Globulin Ratio 0.9 (0.9-1.6) Med Orders - Current: Current Medications Acetaminophen (Tylenol) 325 mg PO Q4H PRN PRN Reason: Pain (Mild 1-3)/fever Folic Acid (Folic Acid) 1 mg PO DAILY [facility] Last Admin: 10/06/20 09:35 Dose: 1 mg Documented by: Influenza Virus Vaccine (Fluzone Quad [id number] Syringe) 60 mcg IM .ONCE ONE Stop: 10/07/20 15:01 Lorazepam (Ativan) 0 mg IVPUSH Q4H PRN; Protocol PRN Reason: CIWAA Last Admin: 10/06/20 17:25 Dose: 1 mg Documented by: Ondansetron HCl (Zofran) 4 mg IVPUSH Q4H PRN PRN Reason: Nausea Thiamine HCl (Vitamin B-1) 100 mg PO BEDTIME [facility] Last Admin: 10/06/20 20:16 Dose: 100 mg Documented by: Discontinued Medications Sodium Chloride (Normal Saline) 1,000 mls @ 999 mls/hr IV STAT ONE Stop: 10/05/20 13:32 Last Admin: 10/05/20 12:51 Dose: 999 mls/hr Documented by: Influenza Virus Vaccine (Pharmacy To Dose - Influenza Vaccine) 1 each IM ONETIME ONE Stop: 10/05/20 15:44 Magnesium Sulfate (Magnesium Sulfate In Water Premix) 2 gm IV ONETIME ONE Stop: 10/07/20 08:01 Ondansetron HCl (Zofran) 4 mg IVPUSH ONETIME ONE Stop: 10/05/20 12:33 Last Admin: 10/05/20 12:52 Dose: 4 mg Documented by: Thiamine HCl (Vitamin B-1) 100 mg PO BEDTIME [facility] Thiamine HCl (Vitamin B-1) 100 mg PO ONETIME ONE Stop: 10/05/20 16:33 Last Admin: 10/05/20 17:01 Dose: 100 mg Documented by: - Exam General: Alert, Oriented, Cooperative, No Acute Distress Lungs: Clear to Auscultation, Normal Respiratory Effort Cardiovascular: Regular Rate, Regular Rhythm GI/Abdominal Exam: Normal Bowel Sounds, Soft, Non-Tender, No Distention Extremities: Normal Inspection, No Pedal Edema Sepsis Event Note - Evaluation Sepsis Screening Result: No Definite Risk - Focused Exam Vital Signs: Vital Signs Temp Pulse Resp BP Pulse Ox 10/07/20 07:10 36.1 C 68 16 127/88 100 10/07/20 04:00 36.6 C 67 16 120/24 L 98 10/07/20 00:00 36.9 C 18 L 18 123/83 98 - Problem List & Annotations (1) Desire for detoxification SNOMED Code(s): 703949249 Code(s): PYF2929 - Status: Acute Current Visit: Yes (2) Alcohol abuse SNOMED Code(s): 19795310 Code(s): F10.10 - ALCOHOL ABUSE, UNCOMPLICATED Status: Acute Current Visit: Yes - Problem List Review Problem List Initiated/Reviewed/Updated: Yes - My Orders Last 24 Hours: My Active Orders 10/06/20 21:00 Thiamine [Vitamin B-1] 100 mg PO BEDTIME - Plan Plan:: Assessment and Plan: 1. Alcohol detox: - Continue thiamine, folic acid and Ativan prn CIWAA protocol.
[2020-10-07] MEDS: Folic Acid 1 MG Tab PO SCH (09:33)
[2020-10-07] MEDS ORDERED: FLU VACC QS2020-21(6MOS UP)/PF 60 MCG/0.5 ML SYRINGE IM ONE (15:00)
--- NOTE | 2020-10-07 15:39 | PCM.DCSUM1 ---
<Prosper Lowe - Last Filed: 10/07/20 15:37> Discharge Summary - Hospital Course Free Text/Narrative:: 45-year-old male admitted for alcohol detox. He reported no significant PMH. Patient was started on thiamine, folic acid and ativan prn ciwaa protocol. Patient remained hemodynamically stable throughout his hospitalization. He did develop some tremors that resolved by day of discharge. He reports feeling well on day of discharge and tolerated oral diet. He was discharged in stable c ondition with scripts for thiamine and folic acid. Advised to follow-up with PCP. Offered further resources for alcohol cessation, however, patient reported he already has resources and contact information. - Discharge Data Discharge Date: 10/07/20 Discharge Disposition: Home, Self-Care 01 Condition: Stable - Referral to Home Health Primary Care Physician: Tyson Mendoza MD - Discharge Diagnosis/Problem(s) (1) Desire for detoxification SNOMED Code(s): 993116360 ICD Code: [id number] - Status: Acute (2) Alcohol abuse SNOMED Code(s): 82422702 ICD Code: F10.10 - ALCOHOL ABUSE, UNCOMPLICATED Status: Acute - Patient Instructions Diet: Usual Diet as Tolerated Activity: As Tolerated Notify Provider of: Fever, Increased Pain, Swelling and Redness, Drainage, Nausea and/or Vomiting - Discharge Plan *PRESCRIPTION DRUG MONITORING PROGRAM REVIEWED*: Not Applicable *COPY OF PRESCRIPTION DRUG MONITORING REPORT IN PATIENT MENDY: Not Applicable Prescriptions/Med Rec: Folic Acid 1 mg PO DAILY 30 Days #30 tablet Thiamine [Vitamin B-1] 100 mg PO BEDTIME 30 Days #30 tablet Home Medications: Home Meds Folic Acid 1 mg PO DAILY 30 Days #30 tablet 10/07/20 [Rx] Thiamine [Vitamin B-1] 100 mg PO BEDTIME 30 Days #30 tablet 10/07/20 [Rx] Oxygen Therapy Mode: Room Air Patient Handouts: Thiamine, Vitamin B1 tablets, Folic Acid, Vitamin B9 tablets, Alcohol Withdrawal Syndrome, [id number] Forms: ED Department Discharge Referrals: Devika Acevedo NP [Nurse Practitioner] - 10/14/20 2:30 pm - Discharge Summary/Plan Comment DC Time >30 min.: No - Patient Data Vitals - Most Recent: Last Vital Signs Temp 36.1 C 10/07/20 07:10 Pulse 68 10/07/20 07:10 Resp 16 10/07/20 07:10 BP 127/88 10/07/20 07:10 Pulse Ox 100 10/07/20 07:10 Weight - Most Recent: 75.024 kg I&O - Last 24 hours: Intake & Output 10/07/20 10/07/20 10/07/20 06:59 14:59 22:59 Intake Total 700 600 Output Total 400 Balance 700 200 Lab Results - Last 24 hrs: Laboratory Results - last 24 hr 10/07/20 10/07/20 10/07/20 Range/Units 08:00 08:00 08:00 WBC 3.39 L (4.0-11.0) K/uL RBC 4.58 (4.50-5.90) M/uL Hgb 14.4 (13.0-17.0) g/dL Hct 43.8 (38.0-50.0) % MCV 95.6 (80.0-98.0) fL MCH 31.4 (27.0-32.0) pg MCHC 32.9 (31.0-37.0) g/dL RDW Std Deviation 46.0 (28.0-62.0) fl RDW Coeff of Liana 13 (11.0-15.0) % Plt Count 234 (150-400) K/uL MPV 9.70 (7.40-12.00) fL Neut % (Auto) 49.9 (48.0-80.0) % Lymph % (Auto) 32.2 (16.0-40.0) % [place]pton % (Auto) 14.7 (0.0-15.0) % Eos % (Auto) 2.9 (0.0-7.0) % Baso % (Auto) 0.3 (0.0-1.5) % Neut # (Auto) 1.7 (1.4-5.7) K/uL Lymph # (Auto) 1.1 (0.6-2.4) K/uL [place]pton # (Auto) 0.5 (0.0-0.8) K/uL Eos # (Auto) 0.1 (0.0-0.7) K/uL Baso # (Auto) 0.0 (0.0-0.1) K/uL Nucleated RBC % 0.0 /100WBC Nucleated RBCs # 0 K/uL Sodium 133 L (136-148) mmol/L Potassium 4.0 (3.5-5.1) mmol/L Chloride 100 (98-107) mmol/L Carbon Dioxide 28.5 (21.0-32.0) mmol/L BUN 11 (7.0-18.0) mg/dL Creatinine 0.9 (0.8-1.3) mg/dL Est Cr Clr Drug Dosing 111.15 mL/min Estimated GFR (MDRD) > 60.0 ml/min Glucose 95 (74-106) mg/dL Calcium 8.7 (8.5-10.1) mg/dL Magnesium 1.9 (1.8-2.4) mg/dL Total Bilirubin 1.1 H (0.2-1.0) mg/dL AST 89 H (15-37) IU/L ALT 78 H (14-63) IU/L Alkaline Phosphatase 55 (46-116) U/L Total Protein 7.4 (6.4-8.2) g/dL Albumin 3.6 (3.4-5.0) g/dL Globulin 3.8 (2.6-4.0) g/dL Albumin/Globulin Ratio 0.9 (0.9-1.6) Med Orders - Current: Current Medications Discontinued Medications Acetaminophen (Tylenol) 325 mg PO Q4H PRN PRN Reason: Pain (Mild 1-3)/fever Folic Acid (Folic Acid) 1 mg PO DAILY ALEJANDRO Last Admin: 10/07/20 09:33 Dose: 1 mg Documented by: Sodium Chloride (Normal Saline) 1,000 mls @ 999 mls/hr IV STAT ONE Stop: 10/05/20 13:32 Last Admin: 10/05/20 12:51 Dose: 999 mls/hr Documented by: Influenza Virus Vaccine (Pharmacy To Dose - Influenza Vaccine) 1 each IM ONETIME ONE Stop: 10/05/20 15:44 Influenza Virus Vaccine (Fluzone Quad [id number] Syringe) 60 mcg IM .ONCE ONE Stop: 10/07/20 15:01 Lorazepam (Ativan) 0 mg IVPUSH Q4H PRN; Protocol PRN Reason: CIWAA Last Admin: 10/06/20 17:25 Dose: 1 mg Documented by: Magnesium Sulfate (Magnesium Sulfate In Water Premix) 2 gm IV ONETIME ONE Stop: 10/07/20 08:01 Ondansetron HCl (Zofran) 4 mg IVPUSH ONETIME ONE Stop: 10/05/20 12:33 Last Admin: 10/05/20 12:52 Dose: 4 mg Documented by: Ondansetron HCl (Zofran) 4 mg IVPUSH Q4H PRN PRN Reason: Nausea Thiamine HCl (Vitamin B-1) 100 mg PO BEDTIME ALEJANDRO Thiamine HCl (Vitamin B-1) 100 mg PO ONETIME ONE Stop: 10/05/20 16:33 Last Admin: 10/05/20 17:01 Dose: 100 mg Documented by: Thiamine HCl (Vitamin B-1) 100 mg PO BEDTIME [facility] Last Admin: 10/06/20 20:16 Dose: 100 mg Documented by: <Ellie Hess - Last Filed: 10/15/20 17:48> Discharge Summary - Hospital Course Free Text/Narrative:: I have seen and evaluated the patient and agree with the residents note unless specified in my note - Referral to Home Health Primary Care Physician: Tyson Mendoza MD - Discharge Diagnosis/Problem(s) (1) Alcohol abuse SNOMED Code(s): 71460790 ICD Code: F10.10 - ALCOHOL ABUSE, UNCOMPLICATED Status: Acute (2) Desire for detoxification SNOMED Code(s): 974131408 ICD Code: [id number] - Status: Acute (3) Nausea and vomiting SNOMED Code(s): 35043706 ICD Code: R11.2 - NAUSEA WITH VOMITING, UNSPECIFIED Status: Acute Qualifiers: Vomiting type: unspecified Vomiting Intractability: unspecified Qualified Code(s): R11.2 - Nausea with vomiting, unspecified - Patient Data Vitals - Most Recent: Last Vital Signs Temp 36.1 C 10/07/20 07:10 Pulse 68 10/07/20 07:10 Resp 16 10/07/20 07:10 BP 127/88 10/07/20 07:10 Pulse Ox 100 10/07/20 07:10 Med Orders - Current: Current Medications Discontinued Medications Acetaminophen (Tylenol) 325 mg PO Q4H PRN PRN Reason: Pain (Mild 1-3)/fever Folic Acid (Folic Acid) 1 mg PO DAILY [facility] Last Admin: 10/07/20 09:33 Dose: 1 mg Documented by: Sodium Chloride (Normal Saline) 1,000 mls @ 999 mls/hr IV STAT ONE Stop: 10/05/20 13:32 Last Admin: 10/05/20 12:51 Dose: 999 mls/hr Documented by: Influenza Virus Vaccine (Pharmacy To Dose - Influenza Vaccine) 1 each IM ONETIME ONE Stop: 10/05/20 15:44 Influenza Virus Vaccine (Fluzone Quad [id number] Syringe) 60 mcg IM .ONCE ONE Stop: 10/07/20 15:01 Lorazepam (Ativan) 0 mg IVPUSH Q4H PRN; Protocol PRN Reason: CIWAA Last Admin: 10/06/20 17:25 Dose: 1 mg Documented by: Magnesium Sulfate (Magnesium Sulfate In Water Premix) 2 gm IV ONETIME ONE Stop: 10/07/20 08:01 Ondansetron HCl (Zofran) 4 mg IVPUSH ONETIME ONE Stop: 10/05/20 12:33 Last Admin: 10/05/20 12:52 Dose: 4 mg Documented by: Ondansetron HCl (Zofran) 4 mg IVPUSH Q4H PRN PRN Reason: Nausea Thiamine HCl (Vitamin B-1) 100 mg PO BEDTIME ALEJANDRO Thiamine HCl (Vitamin B-1) 100 mg PO ONETIME ONE Stop: 10/05/20 16:33 Last Admin: 10/05/20 17:01 Dose: 100 mg Documented by: Thiamine HCl (Vitamin B-1) 100 mg PO BEDTIME ALEJANDRO Last Admin: 10/06/20 20:16 Dose: 100 mg Documented by:
== END 2020-10-07 12:07 | disposition home or self-care (01) | DRG 775 ==
LOC: MW.ED 11:47 → MW.MS 12:33
PROVIDERS: ADMIT Internal Medicine; ATTEND Internal Medicine
DX: F10.239 Alcohol dependence with withdrawal, unspecified (principal); R11.2 Nausea with vomiting, unspecified; Z20.828 Contact with and (suspected) exposure to other viral communicable diseases; Z23 Encounter for immunization; Y90.6 Blood alcohol level of 120-199 mg/100 ml; Z79.899 Other long term (current) drug therapy; Z90.89 Acquired absence of other organs; Z72.0 Tobacco use; Z98.890 Other specified postprocedural states
CPT/HCPCS: 36415; 80053; 80305-QW; 80307; 81001; 83735; 84100; 84443; 85025; 93005; 93010; 99221; 99231; 99238; 99284; 99285-25; A9270-GY; J2060; J2405; J7030; U0002